=== PATIENT | male | born 1985 | race Caucasian/White ===

== ENCOUNTER 2021-11-26 09:54 | Inpatient (IN) | payer OTHER ==
[2021-11-26 11:03] VITALS: BMI 21.4
[2021-11-26] MEDS ORDERED: guaiFENesin 200 MG/10 ML 10 ML UNIT-DOSE CUPS PO PRN (11:58)
[2021-11-26] MEDS ORDERED: MAGNESIUM HYDROX 2400MG/30ML ORAL SUSPENSION 30 ML CUP PO PRN (11:58)
[2021-11-26] MEDS ORDERED: P-EPHED 60MG/TRIPROLIDI 2.5MG TABLET PO PRN (11:58)
[2021-11-26] MEDS ORDERED: ACETAMINOPHEN 325 MG TABLET (FP) PO PRN (11:58)
[2021-11-26] MEDS ORDERED: MAG HYDROX/AL HYDROX/SIMETH 30 ML UNIT-DOSE CUP PO PRN (11:58)
[2021-11-26] MEDS ORDERED: LOPERAMIDE HCL 2 MG CAPSULE PO PRN (11:58)
[2021-11-26] MEDS ORDERED: IBUPROFEN 400 MG TABLET (FP) PO PRN (11:58)
[2021-11-26] MEDS ORDERED: MAGNESIUM CITRATE 300 ML BOTTLE PO PRN (11:58)
[2021-11-26] MEDS ORDERED: BUPRENORPHINE HCL 150 MCG, BUPRENORPHINE HCL 75 MCG BC ONE (13:42)
[2021-11-26] MEDS ORDERED: cloNIDine HCL 0.1 MG TABLET PO ONE (13:42)
[2021-11-26] MEDS ORDERED: BUPRENORPHINE HCL 150 MCG FILM BC ONE (14:55)
[2021-11-26] MEDS ORDERED: BUPRENORPHINE HCL 75 MCG FILM BC ONE (14:56)
[2021-11-26] MEDS: PRENATAL VITAMINS W/ FOLIC ACID TABLET (FP) PO SCH (16:03)
[2021-11-26] MEDS: NICOTINE 7 MG/24 HOURS TOPICAL PATCH TD SCH (16:05)
[2021-11-26] MEDS: NICOTINE 10 MG CARTRIDGE (INHALER) IH PRN (16:05)
[2021-11-26] MEDS: diazePAM 5 MG TABLET PO PRN ×2 (16:45→22:15)
[2021-11-26] MEDS: hydrOXYzine PAMOATE 25 MG CAPSULE (FP) PO SCH ×3 (16:45→22:15)
[2021-11-26 17:12] LABS: HEMATOCRIT 41.5 % (35.4-49); HEMOGLOBIN 14.4 GM/dL (11.7-16.9); MCHC 34.6 g/dl (32.0-35.9); MEAN CELL VOLUME 92.4 fl (80-96); MEAN PLT VOLUME 7.4 fl (7.5-11.1); PLATELET COUNT 164 10^3/uL (134-434); RBC 4.49 M/mm3 (4.00-5.60); WHITE BLOOD COUNT 5.6 K/mm3 (4.0-10.0)
[2021-11-26 17:15] LABS: ALBUMIN 4.2 g/dl (3.4-5.0); BLOOD UREA NITROGEN 12.8 mg/dL (7-18); CALCIUM 9.2 mg/dL (8.5-10.1)
[2021-11-26 17:19] LABS: BILIRUBIN,TOTAL 0.8 mg/dL (0.2-1); TOT PROT 6.7 g/dl (6.4-8.2)
[2021-11-26 18:52] LABS: SYPHILIS W/ RPR CONF NON-REACTIVE (NONREACTIVE)
[2021-11-26] MEDS: MELATONIN 5 MG TABLETS PO SCH (22:15)
[2021-11-26] MEDS: THIAMINE HCL 100 MG TABLET (FP) PO SCH (22:15)
[2021-11-27] MEDS ORDERED: BUPRENORPHINE HCL 75 MCG FILM BC ONE ×2 (04:40→17:06)
[2021-11-27] MEDS ORDERED: BUPRENORPHINE HCL 150 MCG FILM BC ONE ×2 (04:40→17:05)
[2021-11-27] MEDS: hydrOXYzine PAMOATE 25 MG CAPSULE (FP) PO SCH ×5 (05:13→22:35)
[2021-11-27] MEDS: BUPRENORPHINE HCL 150 MCG, BUPRENORPHINE HCL 75 MCG BC SCH ×2 (05:13→18:20)
[2021-11-27] MEDS: NICOTINE 10 MG CARTRIDGE (INHALER) IH PRN (08:47)
[2021-11-27] MEDS: diazePAM 5 MG TABLET PO PRN ×3 (08:47→22:24)
[2021-11-27] MEDS: NICOTINE 7 MG/24 HOURS TOPICAL PATCH TD SCH (10:25)
[2021-11-27] MEDS: cloNIDine HCL 0.1 MG TABLET PO PRN (10:26)
[2021-11-27] MEDS: PRENATAL VITAMINS W/ FOLIC ACID TABLET (FP) PO SCH (10:26)
[2021-11-27] MEDS ORDERED: QUEtiapine FUMARATE 50 MG TABLET PO ONE (14:40)
[2021-11-27] MEDS ORDERED: GABAPENTIN 300 MG CAPSULE PO SCH (14:45)
[2021-11-27] MEDS ORDERED: DEXTROAMPHETAMINE/AMPHETAMINE 10 MG CAP.ER.24H PO SCH (15:15)
[2021-11-27] MEDS: QUEtiapine FUMARATE 100 MG TABLET (FP) PO SCH (21:43)
[2021-11-27] MEDS: THIAMINE HCL 100 MG TABLET (FP) PO SCH (21:43)
[2021-11-27] MEDS: MELATONIN 5 MG TABLETS PO SCH (22:25)
[2021-11-28] MEDS: BUPRENORPHINE HCL 450 MCG FILM BC SCH ×2 (05:28→17:21)
[2021-11-28] MEDS: hydrOXYzine PAMOATE 25 MG CAPSULE (FP) PO SCH ×5 (05:28→22:06)
[2021-11-28] MEDS: cloNIDine HCL 0.1 MG TABLET PO PRN ×2 (05:28→10:08)
[2021-11-28] MEDS: diazePAM 5 MG TABLET PO PRN ×3 (05:28→17:21)
[2021-11-28] MEDS: PRENATAL VITAMINS W/ FOLIC ACID TABLET (FP) PO SCH (10:06)
[2021-11-28] MEDS: NICOTINE 10 MG CARTRIDGE (INHALER) IH PRN ×2 (10:08→15:42)
[2021-11-28] MEDS: NICOTINE 7 MG/24 HOURS TOPICAL PATCH TD SCH (10:09)
[2021-11-28] MEDS ORDERED: DEXTROAMPHETAMINE/AMPHETAMINE 10 MG CAP.ER.24H PO SCH (12:45)
[2021-11-28] MEDS: DEXTROAMPHETAMINE/AMPHETAMINE 10 MG CAP.ER.24H PO SCH (15:42)
[2021-11-28 16:08] LABS: SARS-CoV-2 NAA Not Detected (Not Detected)
[2021-11-28] MEDS: THIAMINE HCL 100 MG TABLET (FP) PO SCH (22:06)
[2021-11-28] MEDS: MELATONIN 5 MG TABLETS PO SCH (22:06)
[2021-11-28] MEDS: QUEtiapine FUMARATE 100 MG TABLET (FP) PO SCH (22:06)
[2021-11-29] MEDS: hydrOXYzine PAMOATE 25 MG CAPSULE (FP) PO SCH ×2 (05:28→10:10)
[2021-11-29] MEDS: diazePAM 5 MG TABLET PO PRN ×2 (05:31→11:36)
[2021-11-29] MEDS ORDERED: BUPRENORPHINE/NALOXONE 4 MG/1 MG FILM PACKET SL SCH (06:00)
[2021-11-29 09:12] VITALS: BP 91/67; PULSE 81; TEMP 96.4
[2021-11-29] MEDS ORDERED: NICOTINE POLACRILEX 2 MG GUM BUC PRN (09:52)
[2021-11-29] MEDS: PRENATAL VITAMINS W/ FOLIC ACID TABLET (FP) PO SCH (10:08)
[2021-11-29] MEDS: DEXTROAMPHETAMINE/AMPHETAMINE 10 MG CAP.ER.24H PO SCH (10:08)
[2021-11-29] MEDS: NICOTINE 7 MG/24 HOURS TOPICAL PATCH TD SCH (10:10)
[2021-11-29] MEDS: NICOTINE 10 MG CARTRIDGE (INHALER) IH PRN (11:38)
[2021-11-30] MEDS ORDERED: BUPRENORPHINE/NALOXONE 8 MG/2 MG FILM PACKET SL ONE (06:00)
== END 2021-11-29 12:17 | disposition other institution (70) | DRG 897 ==
LOC: YASAS 09:54 → Y3N 14:53
PROVIDERS: ADMIT Allergy & Immunology; ATTEND Allergy & Immunology
PROC: HZ2ZZZZ Detoxification Services for Substance Abuse Treatment (ICD-10-PCS; principal; 2021-11-26)
DX: F11.23 Opioid dependence with withdrawal (principal); F14.20 Cocaine dependence, uncomplicated; F13.20 Sedative, hypnotic or anxiolytic dependence, uncomplicated; F12.20 Cannabis dependence, uncomplicated; F17.210 Nicotine dependence, cigarettes, uncomplicated; F19.24 Other psychoactive substance dependence with psychoactive substance-induced mood disorder; F41.9 Anxiety disorder, unspecified; F43.10 Post-traumatic stress disorder, unspecified; F90.9 Attention-deficit hyperactivity disorder, unspecified type; M54.50 Low back pain, unspecified; Z86.19 Personal history of other infectious and parasitic diseases; Z56.0 Unemployment, unspecified; Z59.01 Sheltered homelessness
CPT/HCPCS: 36415; 80053; 85027; 86780; 86803; 87522; 87811; 93005; 93010; C9803-CS; J0735; U0003; U0005

== ENCOUNTER 2021-11-29 12:27 | Inpatient (IN) | payer OTHER ==
[2021-11-29] MEDS ORDERED: guaiFENesin 200 MG/10 ML 10 ML UNIT-DOSE CUPS PO PRN (13:42)
[2021-11-29] MEDS ORDERED: LOPERAMIDE HCL 2 MG CAPSULE PO PRN (13:42)
[2021-11-29] MEDS ORDERED: MAGNESIUM HYDROX 2400MG/30ML ORAL SUSPENSION 30 ML CUP PO PRN (13:42)
[2021-11-29] MEDS ORDERED: MAG HYDROX/AL HYDROX/SIMETH 30 ML UNIT-DOSE CUP PO PRN (13:42)
[2021-11-29] MEDS ORDERED: BENZOCAINE/MENTHOL (CHLORASEPTIC ) LOZENGE MM PRN (13:42)
[2021-11-29] MEDS ORDERED: P-EPHED 60MG/TRIPROLIDI 2.5MG TABLET PO PRN (13:42)
[2021-11-29] MEDS ORDERED: MAGNESIUM CITRATE 300 ML BOTTLE PO PRN (13:42)
[2021-11-29] MEDS: NICOTINE 10 MG CARTRIDGE (INHALER) IH PRN ×2 (14:54→21:14)
[2021-11-29] MEDS: hydrOXYzine PAMOATE 25 MG CAPSULE (FP) PO PRN (14:54)
[2021-11-29] MEDS ORDERED: BUPRENORPHINE/NALOXONE 4 MG/1 MG FILM PACKET SL ONE (18:00)
[2021-11-29] MEDS: clonazePAM 0.5 MG ODT TABLETS SL SCH ×2 (18:30→21:14)
[2021-11-29] MEDS: NICOTINE POLACRILEX 4 MG GUM BUC PRN ×2 (18:35→21:15)
[2021-11-29] MEDS: MELATONIN 5 MG TABLETS PO SCH (21:13)
[2021-11-29] MEDS: QUEtiapine FUMARATE 100 MG TABLET (FP) PO SCH (21:14)
[2021-11-29] MEDS: THIAMINE HCL 100 MG TABLET (FP) PO SCH (21:15)
[2021-11-29] MEDS ORDERED: clonazePAM 0.5 MG ODT TABLETS SL SCH (22:00)
[2021-11-30] MEDS: BUPRENORPHINE/NALOXONE 8 MG/2 MG FILM PACKET SL SCH ×2 (05:57→18:00)
[2021-11-30] MEDS: NICOTINE POLACRILEX 4 MG GUM BUC PRN ×2 (06:00→10:09)
[2021-11-30] MEDS: NICOTINE 10 MG CARTRIDGE (INHALER) IH PRN ×2 (06:00→10:06)
[2021-11-30] MEDS ORDERED: DEXTROAMPHETAMINE/AMPHETAMINE 10 MG CAP.ER.24H PO SCH (10:00)
[2021-11-30] MEDS: DEXTROAMPHETAMINE/AMPHETAMINE 10 MG CAP.ER.24H PO SCH (10:08)
[2021-11-30] MEDS: PRENATAL VITAMINS W/ FOLIC ACID TABLET (FP) PO SCH (10:08)
[2021-11-30] MEDS: clonazePAM 0.5 MG ODT TABLETS SL SCH ×2 (10:08→21:12)
[2021-11-30] MEDS: NICOTINE 7 MG/24 HOURS TOPICAL PATCH TD SCH (10:08)
[2021-11-30] MEDS: ACETAMINOPHEN 325 MG TABLET (FP) PO PRN (18:22)
[2021-11-30] MEDS: THIAMINE HCL 100 MG TABLET (FP) PO SCH (21:12)
[2021-11-30] MEDS: QUEtiapine FUMARATE 100 MG TABLET (FP) PO SCH (21:12)
[2021-11-30] MEDS: MELATONIN 5 MG TABLETS PO SCH (21:12)
[2021-12-01] MEDS: NICOTINE 10 MG CARTRIDGE (INHALER) IH PRN ×4 (06:15→21:17)
[2021-12-01] MEDS: BUPRENORPHINE/NALOXONE 8 MG/2 MG FILM PACKET SL SCH ×2 (06:15→18:11)
[2021-12-01] MEDS: IBUPROFEN 400 MG TABLET (FP) PO PRN (06:21)
[2021-12-01] MEDS: DEXTROAMPHETAMINE/AMPHETAMINE 10 MG CAP.ER.24H PO SCH (10:37)
[2021-12-01] MEDS: NICOTINE 7 MG/24 HOURS TOPICAL PATCH TD SCH (10:37)
[2021-12-01] MEDS: clonazePAM 0.5 MG ODT TABLETS SL SCH ×2 (10:37→21:17)
[2021-12-01] MEDS: PRENATAL VITAMINS W/ FOLIC ACID TABLET (FP) PO SCH (10:37)
[2021-12-01] MEDS: NICOTINE POLACRILEX 4 MG GUM BUC PRN (10:38)
[2021-12-01] MEDS: THIAMINE HCL 100 MG TABLET (FP) PO SCH (21:17)
[2021-12-01] MEDS: MELATONIN 5 MG TABLETS PO SCH (21:17)
[2021-12-01] MEDS: QUEtiapine FUMARATE 100 MG TABLET (FP) PO SCH (21:17)
[2021-12-02] MEDS: BUPRENORPHINE/NALOXONE 8 MG/2 MG FILM PACKET SL SCH ×2 (06:04→19:47)
[2021-12-02] MEDS: IBUPROFEN 400 MG TABLET (FP) PO PRN (06:04)
[2021-12-02] MEDS: NICOTINE 10 MG CARTRIDGE (INHALER) IH PRN ×3 (06:07→19:48)
[2021-12-02] MEDS: PRENATAL VITAMINS W/ FOLIC ACID TABLET (FP) PO SCH (10:05)
[2021-12-02] MEDS: clonazePAM 0.5 MG ODT TABLETS SL SCH ×2 (10:05→21:24)
[2021-12-02] MEDS: DEXTROAMPHETAMINE/AMPHETAMINE 10 MG CAP.ER.24H PO SCH (10:05)
[2021-12-02] MEDS: NICOTINE 7 MG/24 HOURS TOPICAL PATCH TD SCH (10:06)
[2021-12-02] MEDS: NICOTINE POLACRILEX 4 MG GUM BUC PRN ×2 (10:07→21:27)
[2021-12-02] MEDS: MELATONIN 5 MG TABLETS PO SCH (21:24)
[2021-12-02] MEDS: THIAMINE HCL 100 MG TABLET (FP) PO SCH (21:24)
[2021-12-02] MEDS: QUEtiapine FUMARATE 100 MG TABLET (FP) PO SCH (21:24)
[2021-12-03] MEDS: NICOTINE 10 MG CARTRIDGE (INHALER) IH PRN ×3 (06:03→21:09)
[2021-12-03] MEDS: IBUPROFEN 400 MG TABLET (FP) PO PRN (06:04)
[2021-12-03] MEDS: BUPRENORPHINE/NALOXONE 8 MG/2 MG FILM PACKET SL SCH ×2 (06:08→17:48)
[2021-12-03 08:06] LABS: SARS-CoV-2 NAA Not Detected (Not Detected)
[2021-12-03] MEDS: NICOTINE 7 MG/24 HOURS TOPICAL PATCH TD SCH (09:55)
[2021-12-03] MEDS: PRENATAL VITAMINS W/ FOLIC ACID TABLET (FP) PO SCH (09:55)
[2021-12-03] MEDS: ACETAMINOPHEN 325 MG TABLET (FP) PO PRN (09:59)
[2021-12-03] MEDS: DEXTROAMPHETAMINE/AMPHETAMINE 10 MG CAP.ER.24H PO SCH (10:00)
[2021-12-03] MEDS: clonazePAM 0.5 MG ODT TABLETS SL SCH ×2 (10:00→21:10)
[2021-12-03] MEDS: QUEtiapine FUMARATE 100 MG TABLET (FP) PO SCH (21:10)
[2021-12-03] MEDS: THIAMINE HCL 100 MG TABLET (FP) PO SCH (21:10)
[2021-12-03] MEDS: MELATONIN 5 MG TABLETS PO SCH (21:10)
[2021-12-04] MEDS: BUPRENORPHINE/NALOXONE 8 MG/2 MG FILM PACKET SL SCH ×2 (06:22→18:46)
[2021-12-04] MEDS: NICOTINE 10 MG CARTRIDGE (INHALER) IH PRN ×2 (06:22→19:13)
[2021-12-04] MEDS: NICOTINE 7 MG/24 HOURS TOPICAL PATCH TD SCH (09:49)
[2021-12-04] MEDS: PRENATAL VITAMINS W/ FOLIC ACID TABLET (FP) PO SCH (09:49)
[2021-12-04] MEDS: clonazePAM 0.5 MG ODT TABLETS SL SCH ×2 (09:51→21:25)
[2021-12-04] MEDS: THIAMINE HCL 100 MG TABLET (FP) PO SCH (21:25)
[2021-12-04] MEDS: MELATONIN 5 MG TABLETS PO SCH (21:25)
[2021-12-04] MEDS: QUEtiapine FUMARATE 100 MG TABLET (FP) PO SCH (21:25)
[2021-12-05] MEDS: NICOTINE 10 MG CARTRIDGE (INHALER) IH PRN ×3 (06:15→14:44)
[2021-12-05] MEDS: BUPRENORPHINE/NALOXONE 8 MG/2 MG FILM PACKET SL SCH ×2 (06:15→19:38)
[2021-12-05] MEDS: clonazePAM 0.5 MG ODT TABLETS SL SCH ×2 (10:11→21:15)
[2021-12-05] MEDS: PRENATAL VITAMINS W/ FOLIC ACID TABLET (FP) PO SCH (10:11)
[2021-12-05] MEDS: NICOTINE 7 MG/24 HOURS TOPICAL PATCH TD SCH (10:12)
[2021-12-05] MEDS: THIAMINE HCL 100 MG TABLET (FP) PO SCH (21:15)
[2021-12-05] MEDS: QUEtiapine FUMARATE 100 MG TABLET (FP) PO SCH (21:15)
[2021-12-05] MEDS: MELATONIN 5 MG TABLETS PO SCH (21:15)
[2021-12-06] MEDS: NICOTINE 10 MG CARTRIDGE (INHALER) IH PRN ×3 (06:20→19:33)
[2021-12-06] MEDS: BUPRENORPHINE/NALOXONE 8 MG/2 MG FILM PACKET SL SCH ×2 (06:21→18:17)
[2021-12-06] MEDS: NICOTINE 7 MG/24 HOURS TOPICAL PATCH TD SCH (10:42)
[2021-12-06] MEDS: clonazePAM 0.5 MG ODT TABLETS SL SCH (10:42)
[2021-12-06] MEDS: PRENATAL VITAMINS W/ FOLIC ACID TABLET (FP) PO SCH (10:42)
[2021-12-06] MEDS: THIAMINE HCL 100 MG TABLET (FP) PO SCH (21:18)
[2021-12-06] MEDS: NICOTINE POLACRILEX 4 MG GUM BUC PRN (21:18)
[2021-12-06] MEDS: QUEtiapine FUMARATE 100 MG TABLET (FP) PO SCH (21:18)
[2021-12-06] MEDS: MELATONIN 5 MG TABLETS PO SCH (21:19)
[2021-12-06] MEDS: hydrOXYzine PAMOATE 25 MG CAPSULE (FP) PO PRN (22:26)
[2021-12-07] MEDS: BUPRENORPHINE/NALOXONE 8 MG/2 MG FILM PACKET SL SCH ×2 (08:49→10:09)
[2021-12-07] MEDS: NICOTINE 7 MG/24 HOURS TOPICAL PATCH TD SCH (10:08)
[2021-12-07] MEDS: PRENATAL VITAMINS W/ FOLIC ACID TABLET (FP) PO SCH (10:08)
[2021-12-07] MEDS: clonazePAM 0.5 MG ODT TABLETS SL SCH ×2 (10:08→21:21)
[2021-12-07] MEDS: NICOTINE 10 MG CARTRIDGE (INHALER) IH PRN ×3 (10:09→21:21)
[2021-12-07] MEDS: IBUPROFEN 400 MG TABLET (FP) PO PRN (10:10)
[2021-12-07] MEDS: NICOTINE POLACRILEX 4 MG GUM BUC PRN (14:47)
[2021-12-07 17:26] VITALS: BMI 21.8
[2021-12-07] MEDS: QUEtiapine FUMARATE 100 MG TABLET (FP) PO SCH (21:21)
[2021-12-07] MEDS: MELATONIN 5 MG TABLETS PO SCH (21:21)
[2021-12-07] MEDS: THIAMINE HCL 100 MG TABLET (FP) PO SCH (21:22)
[2021-12-08] MEDS: NICOTINE 10 MG CARTRIDGE (INHALER) IH PRN ×3 (09:56→21:21)
[2021-12-08] MEDS: clonazePAM 0.5 MG ODT TABLETS SL SCH ×2 (09:56→21:19)
[2021-12-08] MEDS: PRENATAL VITAMINS W/ FOLIC ACID TABLET (FP) PO SCH (09:56)
[2021-12-08] MEDS: BUPRENORPHINE/NALOXONE 8 MG/2 MG FILM PACKET SL SCH (09:57)
[2021-12-08] MEDS: NICOTINE 7 MG/24 HOURS TOPICAL PATCH TD SCH (09:57)
[2021-12-08] MEDS: IBUPROFEN 400 MG TABLET (FP) PO PRN (09:58)
[2021-12-08] MEDS: MELATONIN 5 MG TABLETS PO SCH (21:20)
[2021-12-08] MEDS: THIAMINE HCL 100 MG TABLET (FP) PO SCH (21:20)
[2021-12-08] MEDS: QUEtiapine FUMARATE 100 MG TABLET (FP) PO SCH (21:20)
[2021-12-09] MEDS: NICOTINE 7 MG/24 HOURS TOPICAL PATCH TD SCH (09:59)
[2021-12-09] MEDS: clonazePAM 0.5 MG ODT TABLETS SL SCH ×2 (09:59→21:17)
[2021-12-09] MEDS: BUPRENORPHINE/NALOXONE 8 MG/2 MG FILM PACKET SL SCH (09:59)
[2021-12-09] MEDS: NICOTINE 10 MG CARTRIDGE (INHALER) IH PRN ×3 (09:59→21:18)
[2021-12-09] MEDS: PRENATAL VITAMINS W/ FOLIC ACID TABLET (FP) PO SCH (09:59)
[2021-12-09] MEDS: QUEtiapine FUMARATE 100 MG TABLET (FP) PO SCH (21:17)
[2021-12-09] MEDS: THIAMINE HCL 100 MG TABLET (FP) PO SCH (21:17)
[2021-12-09] MEDS: MELATONIN 5 MG TABLETS PO SCH (21:18)
[2021-12-10] MEDS: NICOTINE 10 MG CARTRIDGE (INHALER) IH PRN ×4 (09:46→21:53)
[2021-12-10] MEDS: PRENATAL VITAMINS W/ FOLIC ACID TABLET (FP) PO SCH (09:47)
[2021-12-10] MEDS: NICOTINE 7 MG/24 HOURS TOPICAL PATCH TD SCH (09:47)
[2021-12-10] MEDS: clonazePAM 0.5 MG ODT TABLETS SL SCH ×2 (09:47→21:53)
[2021-12-10] MEDS: BUPRENORPHINE/NALOXONE 8 MG/2 MG FILM PACKET SL SCH (09:48)
[2021-12-10] MEDS: MELATONIN 5 MG TABLETS PO SCH (21:53)
[2021-12-10] MEDS: QUEtiapine FUMARATE 100 MG TABLET (FP) PO SCH (21:53)
[2021-12-10] MEDS: THIAMINE HCL 100 MG TABLET (FP) PO SCH (21:53)
[2021-12-11] MEDS: NICOTINE 10 MG CARTRIDGE (INHALER) IH PRN (09:48)
[2021-12-11] MEDS: BUPRENORPHINE/NALOXONE 8 MG/2 MG FILM PACKET SL SCH (09:48)
[2021-12-11] MEDS: PRENATAL VITAMINS W/ FOLIC ACID TABLET (FP) PO SCH (09:48)
[2021-12-11] MEDS: NICOTINE 7 MG/24 HOURS TOPICAL PATCH TD SCH (09:49)
[2021-12-11] MEDS: clonazePAM 0.5 MG ODT TABLETS SL SCH (09:49)
[2021-12-11] MEDS ORDERED: QUEtiapine FUMARATE 50 MG TABLET PO ONE (17:17)
[2021-12-11] MEDS: NICOTINE POLACRILEX 4 MG GUM BUC PRN (20:02)
[2021-12-11 20:26] VITALS: BP 146/88; PULSE 83; TEMP 97.3
[2021-12-11] MEDS ORDERED: QUEtiapine FUMARATE 50 MG TABLET PO SCH (22:00)
[2021-12-11] MEDS ORDERED: GABAPENTIN 300 MG CAPSULE PO SCH (22:00)
== END 2021-12-11 20:30 | disposition short-term general hospital (02) | DRG 895 ==
LOC: YASAS 12:27 → Y5N 12:28
PROVIDERS: ADMIT Allergy & Immunology; ATTEND Allergy & Immunology
PROC: HZ42ZZZ Group Counseling for Substance Abuse Treatment, Cognitive-Behavioral (ICD-10-PCS; principal; 2021-11-29)
DX: F11.20 Opioid dependence, uncomplicated (principal); F13.20 Sedative, hypnotic or anxiolytic dependence, uncomplicated; F14.20 Cocaine dependence, uncomplicated; F12.20 Cannabis dependence, uncomplicated; F17.210 Nicotine dependence, cigarettes, uncomplicated; F90.9 Attention-deficit hyperactivity disorder, unspecified type; F43.10 Post-traumatic stress disorder, unspecified; G47.00 Insomnia, unspecified; M79.641 Pain in right hand; Z59.00 Homelessness unspecified
CPT/HCPCS: 36415; 73130-TC-RT-FY; 87522; 99283-25; C9803-CS; U0003; U0005

== ENCOUNTER 2021-12-07 15:38 | Emergency (ER) | payer OTHER ==
[2021-12-07 15:45] VITALS: BP 122/78; PULSE 70; TEMP 98.4; BMI 22.1
[2021-12-07] MEDS ORDERED: IBUPROFEN 600 MG TABLET (FP) PO ONE ×2 (16:14→16:16)
== END 2021-12-07 16:42 | disposition home or self-care (01) ==
LOC: JERFT 15:38
DX: M79.641 Pain in right hand (principal); W22.09XA Striking against other stationary object, initial encounter
CPT/HCPCS: 73130-TC-RT-FY; 99283-25

== ENCOUNTER 2021-12-12 06:40 | Inpatient (IN) | payer OTHER ==
[2021-12-12 08:39] VITALS: BMI 21.5
[2021-12-12] MEDS ORDERED: P-EPHED 60MG/TRIPROLIDI 2.5MG TABLET PO PRN (10:51)
[2021-12-12] MEDS ORDERED: LOPERAMIDE HCL 2 MG CAPSULE PO PRN (10:51)
[2021-12-12] MEDS ORDERED: MAGNESIUM HYDROX 2400MG/30ML ORAL SUSPENSION 30 ML CUP PO PRN (10:51)
[2021-12-12] MEDS ORDERED: MAG HYDROX/AL HYDROX/SIMETH 30 ML UNIT-DOSE CUP PO PRN (10:51)
[2021-12-12] MEDS ORDERED: ACETAMINOPHEN 325 MG TABLET (FP) PO PRN (10:51)
[2021-12-12] MEDS ORDERED: MAGNESIUM CITRATE 300 ML BOTTLE PO PRN (10:51)
[2021-12-12] MEDS ORDERED: guaiFENesin 200 MG/10 ML 10 ML UNIT-DOSE CUPS PO PRN (10:51)
[2021-12-12] MEDS ORDERED: clonazePAM 0.5 MG ODT TABLETS SL SCH ×2 (11:00→17:00)
[2021-12-12] MEDS ORDERED: BUPRENORPHINE/NALOXONE 4 MG/1 MG FILM PACKET ONE (13:22)
[2021-12-12] MEDS: BUPRENORPHINE/NALOXONE 8 MG/2 MG FILM PACKET SL SCH (13:31)
[2021-12-12] MEDS ORDERED: clonazePAM 0.5 MG ODT TABLETS SL ONE (13:58)
[2021-12-12] MEDS: NICOTINE 7 MG/24 HOURS TOPICAL PATCH TD SCH (15:08)
[2021-12-12] MEDS: NICOTINE 10 MG CARTRIDGE (INHALER) IH PRN ×2 (15:10→21:36)
[2021-12-12] MEDS: hydrOXYzine PAMOATE 25 MG CAPSULE (FP) PO SCH ×3 (15:10→21:35)
[2021-12-12] MEDS: IBUPROFEN 400 MG TABLET (FP) PO PRN (18:01)
[2021-12-12] MEDS: GABAPENTIN 300 MG CAPSULE PO SCH (21:34)
[2021-12-12] MEDS: QUEtiapine FUMARATE 50 MG TABLET PO SCH (21:35)
[2021-12-12] MEDS: clonazePAM 0.5 MG ODT TABLETS SL SCH (21:35)
[2021-12-12] MEDS: MELATONIN 5 MG TABLETS PO SCH (21:36)
[2021-12-12] MEDS: THIAMINE HCL 100 MG TABLET (FP) PO SCH (21:36)
[2021-12-12] MEDS ORDERED: PATIENT'S OWN MEDICATION (NON-FORMULARY) (Dextroamphetamine/Amphetamine [Adderall 10 Mg Ta PO SCH (22:00)
[2021-12-13] MEDS: GABAPENTIN 300 MG CAPSULE PO SCH ×3 (05:56→21:45)
[2021-12-13] MEDS: NICOTINE 10 MG CARTRIDGE (INHALER) IH PRN ×3 (05:57→17:10)
[2021-12-13] MEDS: hydrOXYzine PAMOATE 25 MG CAPSULE (FP) PO SCH ×2 (06:00→10:09)
[2021-12-13] MEDS: IBUPROFEN 400 MG TABLET (FP) PO PRN (07:38)
[2021-12-13] MEDS: NICOTINE 7 MG/24 HOURS TOPICAL PATCH TD SCH (10:07)
[2021-12-13] MEDS: clonazePAM 0.5 MG ODT TABLETS SL SCH ×2 (10:07→21:45)
[2021-12-13] MEDS: PRENATAL VITAMINS W/ FOLIC ACID TABLET (FP) PO SCH (10:07)
[2021-12-13] MEDS: BUPRENORPHINE/NALOXONE 8 MG/2 MG FILM PACKET SL SCH (10:08)
[2021-12-13 10:30] LABS: PH,URINE 5.5 (5.0-8.0); URINE APPEARANCE CLEAR; URINE BILIRUBIN NEGATIVE (NEGATIVE); URINE COLOR YELLOW; URINE GLUCOSE (UA) NEGATIVE (NEGATIVE); URINE KETONE NEGATIVE (NEGATIVE); URINE LEUK ESTERASE NEGATIVE (NEGATIVE); URINE NITRITE NEGATIVE (NEGATIVE); URINE PROTEIN NEGATIVE (NEGATIVE); URINE UROBILINOGEN 0.2 mg/dL (0.2-1.0)
[2021-12-13] MEDS ORDERED: hydrOXYzine PAMOATE 25 MG CAPSULE (FP) PO PRN (11:53)
[2021-12-13] MEDS: QUEtiapine FUMARATE 50 MG TABLET PO SCH (21:44)
[2021-12-13] MEDS: MELATONIN 5 MG TABLETS PO SCH (21:44)
[2021-12-13] MEDS: THIAMINE HCL 100 MG TABLET (FP) PO SCH (21:45)
[2021-12-14] MEDS: NICOTINE 10 MG CARTRIDGE (INHALER) IH PRN ×4 (06:06→21:04)
[2021-12-14] MEDS: GABAPENTIN 300 MG CAPSULE PO SCH ×3 (06:06→21:03)
[2021-12-14] MEDS: PRENATAL VITAMINS W/ FOLIC ACID TABLET (FP) PO SCH (10:35)
[2021-12-14] MEDS: NICOTINE POLACRILEX 2 MG GUM BUC PRN (10:35)
[2021-12-14] MEDS: BUPRENORPHINE/NALOXONE 8 MG/2 MG FILM PACKET SL SCH (10:35)
[2021-12-14] MEDS: clonazePAM 0.5 MG ODT TABLETS SL SCH ×2 (10:35→21:03)
[2021-12-14] MEDS: NICOTINE 7 MG/24 HOURS TOPICAL PATCH TD SCH (10:35)
[2021-12-14] MEDS: QUEtiapine FUMARATE 50 MG TABLET PO SCH (21:03)
[2021-12-14] MEDS: MELATONIN 5 MG TABLETS PO SCH (21:04)
[2021-12-14] MEDS: THIAMINE HCL 100 MG TABLET (FP) PO SCH (21:04)
[2021-12-15] MEDS: GABAPENTIN 300 MG CAPSULE PO SCH ×3 (06:58→21:37)
[2021-12-15] MEDS: clonazePAM 0.5 MG ODT TABLETS SL SCH ×2 (10:06→21:36)
[2021-12-15] MEDS: PRENATAL VITAMINS W/ FOLIC ACID TABLET (FP) PO SCH (10:06)
[2021-12-15] MEDS: BUPRENORPHINE/NALOXONE 8 MG/2 MG FILM PACKET SL SCH (10:06)
[2021-12-15] MEDS: NICOTINE 7 MG/24 HOURS TOPICAL PATCH TD SCH (10:06)
[2021-12-15] MEDS: NICOTINE 10 MG CARTRIDGE (INHALER) IH PRN ×2 (15:48→21:37)
[2021-12-15] MEDS: QUEtiapine FUMARATE 50 MG TABLET PO SCH (21:36)
[2021-12-15] MEDS: THIAMINE HCL 100 MG TABLET (FP) PO SCH (21:37)
[2021-12-15] MEDS: MELATONIN 5 MG TABLETS PO SCH (21:37)
[2021-12-16] MEDS: GABAPENTIN 300 MG CAPSULE PO SCH ×3 (06:44→21:02)
[2021-12-16] MEDS: clonazePAM 0.5 MG ODT TABLETS SL SCH ×2 (10:30→21:01)
[2021-12-16] MEDS: NICOTINE 10 MG CARTRIDGE (INHALER) IH PRN ×3 (10:30→21:01)
[2021-12-16] MEDS: PRENATAL VITAMINS W/ FOLIC ACID TABLET (FP) PO SCH (10:30)
[2021-12-16] MEDS: NICOTINE 7 MG/24 HOURS TOPICAL PATCH TD SCH (10:32)
[2021-12-16] MEDS: BUPRENORPHINE/NALOXONE 8 MG/2 MG FILM PACKET SL SCH (10:32)
[2021-12-16 20:07] LABS: SARS-CoV-2 NAA Not Detected (Not Detected)
[2021-12-16] MEDS: QUEtiapine FUMARATE 50 MG TABLET PO SCH (21:00)
[2021-12-16] MEDS: THIAMINE HCL 100 MG TABLET (FP) PO SCH (21:00)
[2021-12-16] MEDS: MELATONIN 5 MG TABLETS PO SCH (21:02)
[2021-12-17] MEDS: NICOTINE 10 MG CARTRIDGE (INHALER) IH PRN ×4 (05:44→21:31)
[2021-12-17] MEDS: GABAPENTIN 300 MG CAPSULE PO SCH ×3 (05:45→21:31)
[2021-12-17] MEDS: NICOTINE 7 MG/24 HOURS TOPICAL PATCH TD SCH (09:45)
[2021-12-17] MEDS: BUPRENORPHINE/NALOXONE 8 MG/2 MG FILM PACKET SL SCH (09:45)
[2021-12-17] MEDS: PRENATAL VITAMINS W/ FOLIC ACID TABLET (FP) PO SCH (09:45)
[2021-12-17] MEDS: clonazePAM 0.5 MG ODT TABLETS SL SCH ×2 (09:45→21:30)
[2021-12-17] MEDS: THIAMINE HCL 100 MG TABLET (FP) PO SCH (21:30)
[2021-12-17] MEDS: QUEtiapine FUMARATE 50 MG TABLET PO SCH (21:30)
[2021-12-17] MEDS: MELATONIN 5 MG TABLETS PO SCH (21:31)
[2021-12-18] MEDS: NICOTINE 10 MG CARTRIDGE (INHALER) IH PRN ×3 (05:44→18:44)
[2021-12-18] MEDS: GABAPENTIN 300 MG CAPSULE PO SCH ×3 (05:44→21:02)
[2021-12-18] MEDS: BUPRENORPHINE/NALOXONE 8 MG/2 MG FILM PACKET SL SCH (10:47)
[2021-12-18] MEDS: clonazePAM 0.5 MG ODT TABLETS SL SCH ×2 (10:47→21:01)
[2021-12-18] MEDS: NICOTINE 7 MG/24 HOURS TOPICAL PATCH TD SCH (10:47)
[2021-12-18] MEDS: PRENATAL VITAMINS W/ FOLIC ACID TABLET (FP) PO SCH (10:47)
[2021-12-18] MEDS: QUEtiapine FUMARATE 50 MG TABLET PO SCH (21:01)
[2021-12-18] MEDS: NICOTINE POLACRILEX 2 MG GUM BUC PRN (21:01)
[2021-12-18] MEDS: THIAMINE HCL 100 MG TABLET (FP) PO SCH (21:01)
[2021-12-18] MEDS: MELATONIN 5 MG TABLETS PO SCH (21:02)
[2021-12-19] MEDS: NICOTINE 10 MG CARTRIDGE (INHALER) IH PRN ×4 (05:44→21:27)
[2021-12-19] MEDS: GABAPENTIN 300 MG CAPSULE PO SCH ×3 (05:45→21:26)
[2021-12-19] MEDS: clonazePAM 0.5 MG ODT TABLETS SL SCH ×2 (09:55→21:26)
[2021-12-19] MEDS: BUPRENORPHINE/NALOXONE 8 MG/2 MG FILM PACKET SL SCH (09:55)
[2021-12-19] MEDS: PRENATAL VITAMINS W/ FOLIC ACID TABLET (FP) PO SCH (09:55)
[2021-12-19] MEDS: NICOTINE 7 MG/24 HOURS TOPICAL PATCH TD SCH (09:58)
[2021-12-19] MEDS: MELATONIN 5 MG TABLETS PO SCH (21:26)
[2021-12-19] MEDS: THIAMINE HCL 100 MG TABLET (FP) PO SCH (21:26)
[2021-12-19] MEDS: QUEtiapine FUMARATE 50 MG TABLET PO SCH (21:26)
[2021-12-20] MEDS: GABAPENTIN 300 MG CAPSULE PO SCH ×3 (06:21→21:03)
[2021-12-20] MEDS: clonazePAM 0.5 MG ODT TABLETS SL SCH ×2 (10:01→21:02)
[2021-12-20] MEDS: PRENATAL VITAMINS W/ FOLIC ACID TABLET (FP) PO SCH (10:01)
[2021-12-20] MEDS: NICOTINE 7 MG/24 HOURS TOPICAL PATCH TD SCH (10:02)
[2021-12-20] MEDS: NICOTINE 10 MG CARTRIDGE (INHALER) IH PRN ×3 (10:02→21:03)
[2021-12-20] MEDS: BUPRENORPHINE/NALOXONE 8 MG/2 MG FILM PACKET SL SCH (10:02)
[2021-12-20] MEDS: QUEtiapine FUMARATE 50 MG TABLET PO SCH (21:02)
[2021-12-20] MEDS: THIAMINE HCL 100 MG TABLET (FP) PO SCH (21:02)
[2021-12-20] MEDS: MELATONIN 5 MG TABLETS PO SCH (21:02)
[2021-12-21] MEDS: GABAPENTIN 300 MG CAPSULE PO SCH ×3 (06:08→21:23)
[2021-12-21] MEDS: PRENATAL VITAMINS W/ FOLIC ACID TABLET (FP) PO SCH (09:38)
[2021-12-21] MEDS: BUPRENORPHINE/NALOXONE 8 MG/2 MG FILM PACKET SL SCH (09:38)
[2021-12-21] MEDS: clonazePAM 0.5 MG ODT TABLETS SL SCH ×2 (09:38→21:22)
[2021-12-21] MEDS: NICOTINE 7 MG/24 HOURS TOPICAL PATCH TD SCH (09:38)
[2021-12-21] MEDS: NICOTINE 10 MG CARTRIDGE (INHALER) IH PRN ×3 (09:39→21:22)
[2021-12-21] MEDS: IBUPROFEN 400 MG TABLET (FP) PO PRN (17:41)
[2021-12-21] MEDS: THIAMINE HCL 100 MG TABLET (FP) PO SCH (21:22)
[2021-12-21] MEDS: QUEtiapine FUMARATE 50 MG TABLET PO SCH (21:22)
[2021-12-21] MEDS: MELATONIN 5 MG TABLETS PO SCH (21:22)
[2021-12-22] MEDS: GABAPENTIN 300 MG CAPSULE PO SCH ×3 (05:58→21:07)
[2021-12-22] MEDS: clonazePAM 0.5 MG ODT TABLETS SL SCH ×2 (09:42→21:06)
[2021-12-22] MEDS: BUPRENORPHINE/NALOXONE 8 MG/2 MG FILM PACKET SL SCH (09:42)
[2021-12-22] MEDS: NICOTINE 10 MG CARTRIDGE (INHALER) IH PRN ×3 (09:43→21:05)
[2021-12-22] MEDS: PRENATAL VITAMINS W/ FOLIC ACID TABLET (FP) PO SCH (09:44)
[2021-12-22] MEDS: NICOTINE 7 MG/24 HOURS TOPICAL PATCH TD SCH (09:44)
[2021-12-22] MEDS: THIAMINE HCL 100 MG TABLET (FP) PO SCH (21:06)
[2021-12-22] MEDS: QUEtiapine FUMARATE 50 MG TABLET PO SCH (21:06)
[2021-12-22] MEDS: MELATONIN 5 MG TABLETS PO SCH (21:07)
[2021-12-23] MEDS: GABAPENTIN 300 MG CAPSULE PO SCH ×3 (06:42→21:32)
[2021-12-23] MEDS: NICOTINE 10 MG CARTRIDGE (INHALER) IH PRN ×3 (08:49→19:32)
[2021-12-23] MEDS: clonazePAM 0.5 MG ODT TABLETS SL SCH ×2 (10:21→21:31)
[2021-12-23] MEDS: NICOTINE 7 MG/24 HOURS TOPICAL PATCH TD SCH (10:21)
[2021-12-23] MEDS: PRENATAL VITAMINS W/ FOLIC ACID TABLET (FP) PO SCH (10:21)
[2021-12-23] MEDS: BUPRENORPHINE/NALOXONE 8 MG/2 MG FILM PACKET SL SCH (10:22)
[2021-12-23] MEDS: QUEtiapine FUMARATE 50 MG TABLET PO SCH (21:30)
[2021-12-23] MEDS: THIAMINE HCL 100 MG TABLET (FP) PO SCH (21:31)
[2021-12-23] MEDS: MELATONIN 5 MG TABLETS PO SCH (21:31)
[2021-12-24] MEDS: GABAPENTIN 300 MG CAPSULE PO SCH ×2 (06:50→14:04)
[2021-12-24 07:16] VITALS: TEMP 96.7
[2021-12-24] MEDS: BUPRENORPHINE/NALOXONE 8 MG/2 MG FILM PACKET SL SCH (09:26)
[2021-12-24] MEDS: PRENATAL VITAMINS W/ FOLIC ACID TABLET (FP) PO SCH (09:26)
[2021-12-24] MEDS: NICOTINE 7 MG/24 HOURS TOPICAL PATCH TD SCH (09:27)
[2021-12-24] MEDS ORDERED: LORazepam 2 MG TABLET PO SCH (10:00)
[2021-12-24 10:43] VITALS: BP 109/68; PULSE 100
[2021-12-24] MEDS: NICOTINE 10 MG CARTRIDGE (INHALER) IH PRN ×2 (12:13→16:18)
[2021-12-24] MEDS: IBUPROFEN 400 MG TABLET (FP) PO PRN (16:01)
== END 2021-12-24 16:30 | disposition home or self-care (01) | DRG 895 ==
LOC: YASAS 06:40 → Y3W 12:02
PROVIDERS: ADMIT Allergy & Immunology; ATTEND Allergy & Immunology
PROC: HZ42ZZZ Group Counseling for Substance Abuse Treatment, Cognitive-Behavioral (ICD-10-PCS; principal; 2021-12-12)
DX: F11.20 Opioid dependence, uncomplicated (principal); F14.20 Cocaine dependence, uncomplicated; F13.20 Sedative, hypnotic or anxiolytic dependence, uncomplicated; F17.210 Nicotine dependence, cigarettes, uncomplicated; F41.9 Anxiety disorder, unspecified; F32.A Depression, unspecified; F43.10 Post-traumatic stress disorder, unspecified; G47.00 Insomnia, unspecified; Z59.01 Sheltered homelessness
CPT/HCPCS: 36415; 81003; 86780; C9803-CS; U0003; U0005